=== PATIENT | male | born 1985 | race Caucasian/White ===

== ENCOUNTER 2018-06-03 19:56 | Emergency (ER) | payer SELFPAY ==
[2018-06-03] MEDS: DIPHTH/TET/ACEL PERTUSS (ADULT) 0.5 ML VIAL IM* (22:26)
[2018-06-03] MEDS: LIDOCAINE 2% (MDV) 20 ML INJ INJ (22:52)
== END 2018-06-03 23:13 | disposition home or self-care (01) ==
LOC: FTE 19:56
DX: S01.81XA Laceration without foreign body of other part of head, initial encounter (principal); V00.131A Fall from skateboard, initial encounter; Y92.9 Unspecified place or not applicable; Z23 Encounter for immunization
CPT/HCPCS: 12013; 90471; 90715; 99283-25